=== PATIENT | male | born 1955 | race Caucasian/White ===

== ENCOUNTER → 2016-07-30 | Outpatient (CLI) | payer BC | LOC: FIMAGING 12:31 | PROVIDERS: ATTEND Surgery | DX: I83.023 Varicose veins of left lower extremity with ulcer of ankle (principal) ==

== ENCOUNTER → 2018-02-01 | Outpatient (CLI) | payer BC | LOC: FIMAGING 11:34 | PROVIDERS: ATTEND Radiology Diagnostic Radiology | DX: I83.203 Varicose veins of unspecified lower extremity with both ulcer of ankle and inflammation (principal); I72.4 Aneurysm of artery of lower extremity; D68.51 Activated protein C resistance ==

== ENCOUNTER → 2018-06-12 | Outpatient (CLI) | payer BC | LOC: FIMAGING 16:03 ==

== ENCOUNTER → 2018-06-23 | Outpatient (CLI) | payer BC | LOC: FIMAGING 10:22 | PROVIDERS: ATTEND Physician Assistant | DX: R05 Cough (principal); Z87.09 Personal history of other diseases of the respiratory system; M51.34 Other intervertebral disc degeneration, thoracic region ==

== ENCOUNTER 2018-08-11 08:16 | Day surgery (SDC) | payer BC ==
[2018-08-11] MEDS ORDERED: fentaNYL 100 MCG/2 ML INJ IVP PRN (08:21)
[2018-08-11] MEDS ORDERED: NALOXONE HCL 0.4 MG/ML INJ IVP PRN (08:21)
[2018-08-11] MEDS ORDERED: FLUMAZENIL 0.5 MG/5 ML MDV IVP PRN (08:21)
[2018-08-11] MEDS ORDERED: ONDANSETRON 4 MG/2 ML VIAL IVP ONE (08:21)
[2018-08-11] MEDS ORDERED: NS 1,000 ML IV ONE (08:21)
[2018-08-11] MEDS ORDERED: ceFAZolin 2 GM/DEXTROSE 100 ML IV ONE (08:21)
[2018-08-11] MEDS ORDERED: MIDAZOLAM 2 MG/2 ML VIAL IVP PRN (08:21)
[2018-08-11] MEDS ORDERED: MEPERIDINE 25 MG/ML SYR IVP PRN (08:21)
[2018-08-11] MEDS ORDERED: SODIUM TETRADECYL SULFATE 3% 2 ML VIAL IV ONE (09:09)
[2018-08-11] MEDS ORDERED: LIDO/EPI 1% **for epidural** 30 ML SDV ONE ×2 (09:10→09:19)
[2018-08-11] MEDS ORDERED: NA BICARBONATE 50 MEQ/50 ML VIAL ONE ×2 (09:10→09:12)
--- NOTE | 2018-08-11 09:24 | PDGENHP ---
History & Physical Chief Complaint: LLE ULCER AND CELLULITIS History of Present Illness: VENOUS INSUFFICIENCY CAUSING ULCERATION. FACTOR V LEIDEN; PATIENT HAS BEEN ON LOVENOX X 5 DAYS AND WILL CONTINUE X 5 DAYS POST OP Pertinent Past, Social, Family History: TONSILECTOMY, COLONOSCOPY Relevant Physical Exam: BROWN DISCOLORATION LT ANKEL. Cardiorespiratory Assessment: RRR, CTA
--- NOTE | 2018-08-11 09:24 | PDPROPOC ---
Sedation Plan of Care Sedation Plan of Care: vital signs stable, mental status noted, patient educated of risks, benefits, alternatives, patient can tolerate sedation ASA Classification: ASA 2 Planned drugs: fentanyl, midazolam Mallampati Score: Class 2 Mallampati Reference Image: Patient passed 3-3-2 rule?: Yes
[2018-08-11] MEDS ORDERED: ACETAMINOPHEN 325 MG TAB PO PRN (10:59)
[2018-08-11] MEDS ORDERED: ONDANSETRON 4 MG/2 ML VIAL IVP PRN (10:59)
--- NOTE | 2018-08-11 11:00 | PDRADPN ---
Radiology Procedure Note Date of Procedure: 08/11/18 Radiologist: Una Clements Anesthesia: IV Sedation Pre-op Diagnosis: LLE ULCER Post-op Diagnosis: SAME Indication: VENOUS INSUFFICIENCY Procedure: LASER, SCLEROTHERAPY Finding(s): GSV ABLATED. Inf/Abcess present in the surg proc area at time of surgery?: No
[2018-08-11 11:53] VITALS: BP 132/82
== END 2018-08-11 12:09 | disposition home or self-care (01) ==
LOC: FIMAGING 08:16
PROVIDERS: ATTEND Radiology Diagnostic Radiology
DX: I83.223 Varicose veins of left lower extremity with both ulcer of ankle and inflammation (principal); L97.329 Non-pressure chronic ulcer of left ankle with unspecified severity; D68.51 Activated protein C resistance
CPT/HCPCS: 36471; 36478; 76937; 99152; 99153; C1769; C1892; C1894; J0690; J2250; J2310; J3010

== ENCOUNTER → 2018-08-18 | Outpatient (CLI) | payer BC ==
[~2018-08-18] MED LIST: LIDOCAINE 1% 300 MG/30 ML SDV ONE
== END ==
LOC: FIMAGING 11:18
PROVIDERS: ATTEND Radiology Diagnostic Radiology
PROC: 0H9JXZZ Drainage of Left Upper Leg Skin, External Approach (ICD-10-PCS; principal; 2018-08-18)
DX: R22.42 Localized swelling, mass and lump, left lower limb (principal)

== ENCOUNTER → 2018-08-21 | Outpatient (CLI) | payer BC | LOC: FIMAGING 12:50 | PROVIDERS: ATTEND Radiology Diagnostic Radiology | DX: M79.662 Pain in left lower leg (principal); M79.89 Other specified soft tissue disorders ==

== ENCOUNTER → 2018-08-25 | Outpatient (CLI) | payer BC | LOC: FIMAGING 09:01 | PROVIDERS: ATTEND Radiology Diagnostic Radiology | DX: Z09 Encounter for follow-up examination after completed treatment for conditions other than malignant neoplasm (principal); I82.812 Embolism and thrombosis of superficial veins of left lower extremity; Z98.890 Other specified postprocedural states ==

== ENCOUNTER → 2018-08-28 | Outpatient (CLI) | payer BC | LOC: FIMAGING 16:59 ==